=== PATIENT | female | born 1980 | race African-American/Black ===

== ENCOUNTER 2017-01-28 12:49 | Emergency (ER) | payer SELFPAY ==
[~2017-01-28] VITALS: Ht 170.2 cm; Wt 52.2 kg
[2017-01-28 12:49] VITALS: BP 107/67
[2017-01-28] MEDS ORDERED: diphenhydrAMINE HCL 25 MG CAPSULE ONE (13:22)
[2017-01-28] MEDS ORDERED: predniSONE 20 MG TABLET ONE (13:22)
[2017-01-28] MEDS ORDERED: DIPHENHYDRAMINE HCL 12.5 MG/5 ML UDC PO ONE (13:30)
[2017-01-28] MEDS ORDERED: predniSONE 20 MG TABLET PO ONE (13:30)
== END 2017-01-28 13:50 | disposition home or self-care (01) ==
LOC: ER 12:54
DX: T78.49XA Other allergy, initial encounter (principal); F17.200 Nicotine dependence, unspecified, uncomplicated; X58.XXXA Exposure to other specified factors, initial encounter
CPT/HCPCS: 99283; A4606; J7512; Q0163 ×2; Z7610